=== PATIENT | female | born 1995 | race Caucasian/White ===

== ENCOUNTER 2016-09-16 18:11 | Emergency (ER) | payer OTHER ==
[~2016-09-16] VITALS: Ht 157.5 cm; Wt 75.5 kg
[2016-09-16] MEDS ORDERED: ZOFRAN ODT4 MG PO (19:40)
[2016-09-16 19:51] LABS: ADD MIUA? YES; BILIRUBIN NEGATIVE; BLOOD NEGATIVE; COLOR YELLOW ((YELLOW)); GLUCOSE (STRIP) NEGATIVE; KETONES >=80; LEUKOCYTES SMALL; NITRITE NEGATIVE; PROTEIN (STRIP) TRACE; SPECIFIC GRAVITY 1.019 (1.000-1.030); UROBILINOGEN 0.2 MG/DL (0.2-1.0)
[2016-09-16 20:36] LABS: BACTERIA RARE; CASTS NONE SEEN /LPF; CRYSTALS NONE SEEN; EPITHELIAL CELLS 1+; MUCUS 2+; RED BLOOD CELLS RARE /HPF (0-5); UCUL ADDED? NO; WHITE BLOOD CELLS RARE /HPF (0-5)
[2016-09-16 21:18] VITALS: BP 98/58
== END 2016-09-16 21:20 | disposition home or self-care (01) ==
LOC: EME 18:11
PROVIDERS: Physician Assistant Medical
DX: O21.8 Other vomiting complicating pregnancy (principal); R11.0 Nausea; Z3A.17 17 weeks gestation of pregnancy
CPT/HCPCS: 81003; 99281; 99285; J2405; J7030

== ENCOUNTER 2016-11-21 20:18 | Emergency (ER) | payer OTHER ==
[~2016-11-21] VITALS: Ht 157.5 cm; Wt 84.0 kg
[~2016-11-21 20:18] MED LIST: ZOFRAN ODT4 MG PO
[2016-11-21 21:48] VITALS: BP 105/61
== END 2016-11-21 21:48 | disposition home or self-care (01) ==
LOC: EME 20:18
DX: S91.322A Laceration with foreign body, left foot, initial encounter (principal); W45.0XXA Nail entering through skin, initial encounter; Z33.1 Pregnant state, incidental; Z3A.27 27 weeks gestation of pregnancy
CPT/HCPCS: 99281; 99284

== ENCOUNTER 2016-12-03 21:45 | Outpatient (CLI) | payer OTHER ==
[2016-12-03 22:02] VITALS: BP 124/56
[2016-12-03] MEDS ORDERED: PRENATAL TABLE1 EAC3 PO (22:05)
[2016-12-03 23:42] VITALS: BP 104/57
[2016-12-04 03:26] VITALS: BP 114/55
[2016-12-04 06:52] VITALS: BP 107/57
[2016-12-04 10:59] VITALS: BP 115/56
== END 2016-12-04 11:45 | disposition home or self-care (01) ==
LOC: LDRP-OP 21:45 → 2WEST 21:46 → LDRP-OP 03-23 11:21
DX: Z03.79 Encounter for other suspected maternal and fetal conditions ruled out (principal); Z3A.28 28 weeks gestation of pregnancy; W01.0XXA Fall on same level from slipping, tripping and stumbling without subsequent striking against object, initial encounter
CPT/HCPCS: 59025; 76805; 85460; G0378

== ENCOUNTER 2017-02-11 02:19 | Inpatient (IN) | payer OTHER ==
[~2017-02-11] VITALS: Ht 157.5 cm; Wt 86.8 kg
[2017-02-11] VITALS (30 sets, daily range): BP systolic 95–135; BP diastolic 51–84
[~2017-02-11 02:19] MED LIST changes: +PRENATAL TABLE1 EAC3 PO
[2017-02-11 03:58] LABS: EOSINOPHIL (%) 0.4 % (0-5); HEMATOCRIT 36.8 % (36.0-46.0); IMMATURE GRANULOCYTE (%) 0.2 % (0.0-0.7); INSTRUMENT ABS NEUTROPHIL CT 5.9 K/uL; LYMPHOCYTE COUNT 2.4 K/uL (1.0-2.8); MCH 30.4 PG (29.0-34.0); MCHC 34.2 G/DL (30.0-36.0); MCV 88.7 FL (83-99); MEAN PLAT.VOLUME 9.8 uM^3 (9.5-12.4); MONOCYTE (%) 6.6 % (3-12); MONOCYTE COUNT 0.6 K/uL (0-0.8); NEUTROPHIL (%) 65.9 % (45-76); NEUTROPHIL COUNT 5.9 K/uL (1.8-6.4); PLATELET COUNT 202 K/uL (156-360); RBC DIS.WIDTH-CV 13.2 % (11.8-14.6); RBC DIS.WIDTH-SD 42.5 % (39-53); RED BLOOD COUNT 4.15 M/uL (3.80-5.20); WHITE BLOOD COUNT 8.9 K/uL (4.1-10.2)
[2017-02-11 13:13] LABS: AMPHETAMINES QUANT VALUE 0 NG/ML; BARBITUATES QUANT VALUE 0 NG/ML; BENZODIAZEPINES QUANT VALUE 0 NG/ML; BENZODIAZEPINES, URINE SCREEN Negative (200 ng/mL); MARIJUANA QUANT VALUE 0 NG/ML; OPIATES QUANTITATIVE VALUE 0 NG/ML; PHENCYCLIDINE QUANT VALUE 0 NG/ML
[2017-02-11] MEDS ORDERED: IBUPROFEN800 MG PO (20:24)
[2017-02-12 07:33] VITALS: BP 109/67
[2017-02-12 15:00] VITALS: BP 115/69
[2017-02-12 22:31] VITALS: BP 118/62
== END 2017-02-13 14:17 | disposition home or self-care (01) | DRG 775 ==
LOC: LDRP-OP 02:19 → 2WEST 02:20 → LDRP-OP 03-23 12:37
PROVIDERS: Advanced Practice Midwife; Midwife
PROC: 10E0XZZ Delivery of Products of Conception, External Approach (ICD-10-PCS; principal; 2017-02-11)
PROC: 00HU33Z Insertion of Infusion Device into Spinal Canal, Percutaneous Approach (ICD-10-PCS; 2017-02-11)
PROC: 3E0R3CZ (ICD-10-PCS; 2017-02-11)
DX: O69.1XX0 Labor and delivery complicated by cord around neck, with compression, not applicable or unspecified (principal); Z37.0 Single live birth; Z3A.38 38 weeks gestation of pregnancy
CPT/HCPCS: 80306 90; 85025; C1755; J3010; J7120